=== PATIENT | male | born 1970 | race Caucasian/White ===

== ENCOUNTER 2017-12-01 20:24 | Emergency (ER) | payer OTHER ==
[~2017-12-01] VITALS: Ht 177.8 cm; Wt 99.8 kg
[~2017-12-01 20:24] MED LIST: FLONASE 0.05%50 MCG; LEVAQUIN 500 M500 MG PO; LEVAQUIN 750 M750 MG; MUCINEX TA600 MG/TA2; NORCO 5-325 TA1 EACH PO; PROMETHAZINE-D120 ML PO; VENTOLIN HFA 1818 GM; [UNRECOGNIZED DRUG - OTHER]
[2017-12-01 21:33] VITALS: BP 140/81
== END 2017-12-01 21:33 | disposition home or self-care (01) ==
LOC: M.ERS 20:24
DX: R25.2 Cramp and spasm (principal)